=== PATIENT | female | born 1975 | race Caucasian/White ===

== ENCOUNTER 2021-12-30 15:23 | Observation (INO) ==
[2021-12-30] MEDS ORDERED: TUSSIONEX PENNKINETIC SUSP PO PRN (17:04)
[2021-12-30] MEDS: PULMICORT NEB TX 0.5 MG NEB SCH ×2 (17:20→21:00)
[2021-12-30] MEDS ORDERED: DUONEB 0.5 MG/3 MG (3 mL) NEB SCH ×2 (17:30→21:00)
[2021-12-30 17:55] LABS: BASOPHILS # (AUTO) 0.1 X10^3/uL (0.0-0.1); BASOPHILS % (AUTO) 0.6 % (0.2-1.0); EOSINOPHILS # (AUTO) 0.3 x10^3/uL (0.0-0.2); EOSINOPHILS % (AUTO) 3.3 % (0.9-2.9); HEMATOCRIT 42.7 % (36.0-47.0); HEMOGLOBIN 15.1 g/dL (12.0-16.0); LYMPHOCYTES # (AUTO) 3.4 X10^3/uL (1.3-2.9); LYMPHOCYTES % (AUTO) 34.3 % (21.0-51.0); MEAN CORPUSCULAR HEMOGLOBIN 29.1 pg (27.0-34.0); MEAN CORPUSCULAR HGB CONC 35.3 g/dL (33.0-35.0); MEAN CORPUSCULAR VOLUME 82.5 fL (80.0-100.0); MEAN PLATELET VOLUME 7.5 fL (7.4-11.0); MONOCYTES # (AUTO) 0.6 x10^3/uL (0.3-0.8); MONOCYTES % (AUTO) 5.7 % (0.0-13.0); NEUTROPHILS # (AUTO) 5.5 x10^3/uL (2.2-4.8); NEUTROPHILS % (AUTO) 56.1 % (42.0-75.0); RED BLOOD COUNT 5.18 X10^6/uL (3.5-5.4); RED CELL DISTRIBUTION WIDTH 14.4 % (11.6-16.5); WHITE BLOOD COUNT 9.9 X10^3/uL (3.6-10.0)
[2021-12-30 18:11] LABS: ALANINE AMINOTRANSFERASE 33 Units/L (12-78); ALKALINE PHOSPHATASE 93 Units/L (46-116); ASPARTATE AMINO TRANSFERASE 16 Units/L (15-37); BLOOD UREA NITROGEN 30 mg/dL (7-18); CALCIUM 9.7 mg/dL (8.5-10.1); CARBON DIOXIDE 29.6 mmol/L (21-32); CHLORIDE 100 mmol/L (98-107); CREATININE 1.27 mg/dL (0.55-1.02); SODIUM 138 mmol/L (136-145); TOTAL PROTEIN 8.1 g/dL (6.4-8.2); eGFR NON BLACK RACES 48 (>60)
--- NOTE | 2021-12-30 18:11 | RAD ---
HISTORYWEAKNESS. COUGHSTUDYCHEST, PA/LAT ADULTCOMPARISONNone availableTECHNIQUEPA and lateral projections, 2 imagesFINDINGSCardiac silhouette is normal in size and configuration.Pulmonary vascular sizes are normal.No effusion.No focal airspace disease.No pneumothorax.No acute osseous abnormalityIMPRESSIONNo imaging findings of acute cardiopulmonary disease.Electronically signed by: Vitaliy Maria (Dec 30, 2021 18:09:39)
[2021-12-30] MEDS ORDERED: SALINE 3% 15 ML NEB TX ONE (18:12)
[2021-12-30] MEDS ORDERED: DUONEB 0.5 MG/3 MG (3 mL) NEB ONE ×2 (18:12→19:25)
[2021-12-30] MEDS ORDERED: SALINE 3% 15 ML NEB TX NEB ONE (18:15)
[2021-12-30] MEDS ORDERED: PULMICORT NEB TX 0.5 MG NEB ONE (19:25)
[2021-12-30] MEDS: DUONEB 0.5 MG/3 MG (3 mL) NEB SCH (21:00)
[2021-12-30] MEDS ORDERED: NS 1/2 1,000 ML IV 1,000 ML IV ONE (21:40)
[2021-12-30] MEDS: ULTRAM PO PRN (21:42)
[2021-12-30] MEDS: ROCEPHIN 1 GRAM IV PREMIX 1 G/50 ML IV.SOLN. IV SCH (21:44)
[2021-12-30] MEDS: NS 1/2 1,000 ML IV 1,000 ML IV SCH (21:44)
[2021-12-30] MEDS: ROBITUSSIN DM PO SCH (21:45)
[2021-12-30 23:15] VITALS: BMI 23.8
[2021-12-31] MEDS ORDERED: MICRO K EXTEN CAP 10 MEQ PO PRN (00:33)
[2021-12-31] MEDS ORDERED: K-DUR TAB 20 MEQ PO PRN (00:33)
[2021-12-31] MEDS ORDERED: POTASSIUM CHL 60 MEQ/NS 0.45% 500 ML IV PRN (00:33)
[2021-12-31] MEDS ORDERED: POTASSIUM CHL 40 MEQ/NS 0.45% 500 ML IV PRN (00:33)
[2021-12-31] MEDS ORDERED: MAGNESIUM SULFATE 1 GRAM/100 mL PREMIX 1 G/100 ML BAG IV PRN (00:33)
[2021-12-31] MEDS ORDERED: K-RIDER 10 MEQ/NS 100 ML 10 MEQ/100 ML BAG IV PRN (00:33)
[2021-12-31] MEDS ORDERED: POTASSIUM CHLORIDE LIQ 20 MEQ UDC PO PRN (00:33)
[2021-12-31] MEDS: KLOR-CON PO PRN ×2 (03:47→20:46)
[2021-12-31 05:55] LABS: BASOPHILS # (AUTO) 0.1 X10^3/uL (0.0-0.1); BASOPHILS % (AUTO) 0.8 % (0.2-1.0); EOSINOPHILS # (AUTO) 0.3 x10^3/uL (0.0-0.2); EOSINOPHILS % (AUTO) 4.1 % (0.9-2.9); LYMPHOCYTES # (AUTO) 2.7 X10^3/uL (1.3-2.9); LYMPHOCYTES % (AUTO) 33.5 % (21.0-51.0); MEAN CORPUSCULAR HEMOGLOBIN 29.1 pg (27.0-34.0); MEAN CORPUSCULAR HGB CONC 35.3 g/dL (33.0-35.0); MEAN CORPUSCULAR VOLUME 82.6 fL (80.0-100.0); MEAN PLATELET VOLUME 7.5 fL (7.4-11.0); MONOCYTES # (AUTO) 0.6 x10^3/uL (0.3-0.8); MONOCYTES % (AUTO) 6.9 % (0.0-13.0); NEUTROPHILS # (AUTO) 4.4 x10^3/uL (2.2-4.8); NEUTROPHILS % (AUTO) 54.7 % (42.0-75.0); RED BLOOD COUNT 4.48 X10^6/uL (3.5-5.4); RED CELL DISTRIBUTION WIDTH 14.3 % (11.6-16.5); WHITE BLOOD COUNT 8.1 X10^3/uL (3.6-10.0)
[2021-12-31 06:10] LABS: ALANINE AMINOTRANSFERASE 23 Units/L (12-78); ALBUMIN 3.1 g/dL (3.4-5.0); ALKALINE PHOSPHATASE 70 Units/L (46-116); ASPARTATE AMINO TRANSFERASE 10 Units/L (15-37); BLOOD UREA NITROGEN 23 mg/dL (7-18); CARBON DIOXIDE 26.5 mmol/L (21-32); CHLORIDE 105 mmol/L (98-107); COR CA(FOR HYPOALB) 8.7 mg/dL (8.5-10.1); COR NA(FOR HYPERGLY) 142 mmol/L (136-145); CREATININE 1.15 mg/dL (0.55-1.02); SODIUM 142 mmol/L (136-145); TOTAL PROTEIN 6.5 g/dL (6.4-8.2); eGFR NON BLACK RACES 54 (>60)
[2021-12-31 06:20] LABS: HEMOGLOBIN 13.1 g/dL (12.0-16.0)
[2021-12-31] MEDS: ULTRAM PO PRN ×3 (06:29→20:47)
--- NOTE | 2021-12-31 07:44 | RAD ---
HISTORYSOBSTUDYCHEST, 1 VIEWCOMPARISONNoneTECHNIQUEAP view of the chestFINDINGSThe cardiac and mediastinal contours are within normal limits. The lungs are clear without focal consolidation or segmental collapse. No pleural effusion or pneumothorax.IMPRESSIONNo acute pulmonary process.Electronically signed by: Robert Ocampo (Dec 31, 2021 07:43:04)
[2021-12-31] MEDS ORDERED: NS 1/2 1,000 ML IV 1,000 ML IV ONE ×2 (07:57→20:20)
[2021-12-31] MEDS: ROBITUSSIN DM PO SCH ×5 (08:20→23:49)
[2021-12-31] MEDS: VSL#3 PO SCH (08:20)
[2021-12-31] MEDS: ROCEPHIN 1 GRAM IV PREMIX 1 G/50 ML IV.SOLN. IV SCH (08:20)
[2021-12-31] MEDS: NS 1/2 1,000 ML IV 1,000 ML IV SCH ×3 (08:22→23:49)
[2021-12-31] MEDS: DUONEB 0.5 MG/3 MG (3 mL) NEB SCH (08:35)
[2021-12-31] MEDS: PULMICORT NEB TX 0.5 MG NEB SCH (08:35)
[2021-12-31] MEDS ORDERED: PULMICORT NEB TX 0.5 MG NEB PRN (09:34)
[2021-12-31] MEDS ORDERED: DUONEB 0.5 MG/3 MG (3 mL) NEB PRN (09:34)
--- NOTE | 2021-12-31 10:02 | CT ---
HISTORYPERSISTENT HEADACHESSTUDYBRAIN W/O CONCOMPARISONNoneTECHNIQUEMultiple CT axial images of the head were obtained without IV contrast. Coronal and sagittal images were reconstructed. Dose reduction techniques included Automated Exposure Control (AEC) and adjustment of mA and kV.FINDINGSGray and white matter have normal differentiation. There is no mass, shift, or hemorrhage. Cerebellar tonsils are at an appropriate level. No fluid in the sinuses or mucosal thickening to suggest sinusitis. There is no mastoid effusion.IMPRESSION1. No acute findingElectronically signed by: Chris Frost (Dec 31, 2021 10:01:17)
--- NOTE | 2021-12-31 10:16 | DR.UPDATE ---
H&P Update History and Physical Update: History and Physical reviewed and patient examined. Changes noted: Yes with the following: IS A 46 YEAR OLD PATIENT OF OURS WHO PRESENTED TO THE OFFICE WITH COMPLAINTS OF GENERALIZED BODY ACHES, FEVER, COUGH, SHORTNESS OF BREATH, FRONTAL SINUS PRESSURE, SEVERE HEADACHE, AND FATIGUE. SHE ALSO REPORTS A FEW EPISODES OF NAUSEA AND VOMITING. SYMPTOMS STARTED 2-3 DAYS PRIOR TO ARRIVAL. SHE REPORTS TAKING OTC MUCINEX AND MOTRIN FOR FEVER, BUT DENIES IMPROVEMENT IN SYMPTOMS. SHE ADMITS TO TAKING A HOME COVID TEST, BUT IT WAS NEGATIVE. SHE WAS ADMITTED TO THE HOSPITAL FOR FURTHER TREATMENT AND EVALUATION OF ACUTE BRONCHITIS, SINUSITIS, INTRACTABLE HEADACHE. ON ARRIVAL TO THE HOSPITAL, VITALS WERE 97.9-95-23-100%-150/94. LABS WERE OBTAINED. WBC 9.9, HGB 15.1, HCT 42.7, SODIUM 138, POTASSIUM 3.2, CHLORIDE 100, CARBON DIOXIDE 29.6, BUN 30, CREATININE 1.27, GLUCOSE 110, CALCIUM 9.7, TOTAL PROTEIN 8.1, ALBUMIN 4.0. COVID, INFLUENZA, AND RSV NEGATIVE. BLOOD CULTURES WERE SET UP. A CHEST XRAY WAS OBTAINED AND REVEALED: No imaging findings of acute cardiopulmonary disease. SHE WAS STARTED ON 1/2NS AT 75 ML/HR, ROCEPHIN 1G IV DAILY, DUONEBS QID PRN, PULMICORT NEBS BID PRN, TUSSIONEX 5ML PO Q12H PRN, ROBITUSSIN DM 10ML PO QID, ULTRAM 50MG PO Q4H PRN, FIORICET 2 TABS Q8H PRN, AND THE POTASSIUM AND MAGNESIUM PROTOCOL. WE WILL OBTAIN A URINALYSIS AND A BRAIN CT WITHOUT CONTRAST. OTHERWISE, WE PLAN TO FOLLOW UP WITH AM LABS AND CONTINUE TO MONITOR. TIME SPENT ON CLINICAL ASSESSMENT, REVIEWING LABS AND IMAGING, DECISION MAKING, AND DOCUMENTATION GREATER THAN 75 MINUTES. H&P Reviewed: Yes Patient was examined?: Yes
[2021-12-31] MEDS: FLONASE NASAL SPRAY ENOSTRIL SCH (10:41)
[2021-12-31] MEDS: ZyrTEC TAB 10 MG PO SCH (10:41)
[2021-12-31] MEDS ORDERED: NS 1,000 ML IV 1,000 ML IV ONE (11:09)
[2021-12-31 12:11] LABS: BILIRUBIN,URINE NEGATIVE (NEGATIVE); BLOOD/HEMOGLOBIN,URINE 1+ (NEGATIVE); GLUCOSE, URINE NEGATIVE (NEGATIVE); KETONES,URINE NEGATIVE (NEGATIVE); LEUKOCYTE ESTERASE ,URINE NEGATIVE (NEGATIVE); NITRITES,URINE NEGATIVE (NEGATIVE); PROTEIN,URINE NEGATIVE (NEGATIVE); UROBILINOGEN,URINE NORMAL (NORMAL)
[2021-12-31 12:12] LABS: APPEARANCE,URINE CLEAR (CLEAR); COLOR,URINE YELLOW (YELLOW)
[2021-12-31 12:19] LABS: SQUAMOUS EPITHELIAL CELL,UR FEW /HPF (NEGATIVE)
[2021-12-31 12:20] LABS: BACTERIA,URINE NEGATIVE /HPF (NEGATIVE)
[2021-12-31] MEDS: ZOFRAN INJ 4 MG VIAL IVP PRN ×2 (15:00→20:47)
[2021-12-31] MEDS ORDERED: SINGULAIR TAB 10 MG PO SCH (21:00)
[2022-01-01] MEDS ORDERED: NS 1/2 1,000 ML IV 1,000 ML IV ONE (05:01)
[2022-01-01] MEDS: NS 1/2 1,000 ML IV 1,000 ML IV SCH (05:21)
[2022-01-01 06:43] LABS: BASOPHILS # (AUTO) 0.1 X10^3/uL (0.0-0.1); BASOPHILS % (AUTO) 1.2 % (0.2-1.0); EOSINOPHILS # (AUTO) 0.3 x10^3/uL (0.0-0.2); EOSINOPHILS % (AUTO) 4.1 % (0.9-2.9); HEMATOCRIT 35.2 % (36.0-47.0); HEMOGLOBIN 12.3 g/dL (12.0-16.0); LYMPHOCYTES # (AUTO) 2.7 X10^3/uL (1.3-2.9); LYMPHOCYTES % (AUTO) 33.1 % (21.0-51.0); MEAN CORPUSCULAR HEMOGLOBIN 29.3 pg (27.0-34.0); MEAN CORPUSCULAR HGB CONC 34.8 g/dL (33.0-35.0); MEAN CORPUSCULAR VOLUME 84.1 fL (80.0-100.0); MEAN PLATELET VOLUME 7.9 fL (7.4-11.0); MONOCYTES # (AUTO) 0.6 x10^3/uL (0.3-0.8); MONOCYTES % (AUTO) 7.6 % (0.0-13.0); NEUTROPHILS # (AUTO) 4.5 x10^3/uL (2.2-4.8); RED BLOOD COUNT 4.19 X10^6/uL (3.5-5.4); RED CELL DISTRIBUTION WIDTH 14.5 % (11.6-16.5); WHITE BLOOD COUNT 8.3 X10^3/uL (3.6-10.0)
[2022-01-01 07:13] LABS: ALANINE AMINOTRANSFERASE 20 Units/L (12-78); ALBUMIN 2.7 g/dL (3.4-5.0); ALKALINE PHOSPHATASE 60 Units/L (46-116); ASPARTATE AMINO TRANSFERASE 18 Units/L (15-37); BLOOD UREA NITROGEN 11 mg/dL (7-18); CHLORIDE 109 mmol/L (98-107); SODIUM 140 mmol/L (136-145); TOTAL PROTEIN 5.9 g/dL (6.4-8.2); eGFR NON BLACK RACES > 60 (>60)
[2022-01-01 07:39] VITALS: BP 94/61
[2022-01-01] MEDS: ROCEPHIN 1 GRAM IV PREMIX 1 G/50 ML IV.SOLN. IV SCH (08:01)
[2022-01-01] MEDS: FLONASE NASAL SPRAY ENOSTRIL SCH (08:01)
[2022-01-01] MEDS: ROBITUSSIN DM PO SCH (08:01)
[2022-01-01] MEDS: ZyrTEC TAB 10 MG PO SCH (08:02)
[2022-01-01] MEDS: VSL#3 PO SCH (08:02)
== END 2022-01-01 09:55 | disposition home or self-care (01) ==
LOC: MED/SURG
PROVIDERS: ADMIT Internal Medicine; ATTEND Internal Medicine